=== PATIENT | female | born 1950 | race African-American/Black ===

== ENCOUNTER 2017-06-04 11:00 | Emergency (ER) | payer MEDICARE, OTHER ==
[~2017-06-04] VITALS: Ht 172.7 cm; Wt 82.6 kg
--- NOTE | 2017-06-04 11:20 | NUR ---
Patient discharged to home in stable conditon. Written and verbal after care instructions given. Patient verbalizes understanding of instructions.
== END 2017-06-04 11:21 | disposition home or self-care (01) ==
LOC: ER 11:01
DX: L01.00 Impetigo, unspecified (principal); B95.61 Methicillin susceptible Staphylococcus aureus infection as the cause of diseases classified elsewhere
CPT/HCPCS: 99283; A4663